=== PATIENT | male | born 1950 | race Hispanic/Latino ===

== ENCOUNTER 2016-12-28 22:11 | Emergency (ER) | payer SELFPAY ==
[2016-12-28] MEDS ORDERED: Ibuprofen 800 MG TAB ONE (23:16)
[2016-12-28] MEDS ORDERED: cefTRIAXone\\ROCEPHIN 1 GM VIAL ONE (23:16)
[2016-12-28] MEDS ORDERED: Lidocaine 1% 20 ML MDV ONE (23:16)
[2016-12-28] MEDS ORDERED: HYDROcodone/Acetaminophen 5/325 mg Tablet ONE (23:16)
== END 2016-12-28 23:32 | disposition home or self-care (01) ==
LOC: MADERS 22:11
DX: H66.91 Otitis media, unspecified, right ear (principal)
CPT/HCPCS: 96372; J0696; J2001